=== PATIENT | female | born 1955 | race Caucasian/White ===

== ENCOUNTER → 2018-02-20 | Outpatient (CLI) | payer OTHER ==
[~2018-02-20] MED LIST: ASCO1CHW13 PO; ASPECOTC PO; ATOR10TA82 PO; CALC-393 PO; COEN1CAP7 PO; DIPH25CA65 PO; DOXY25TA8 PO; FRCT/ PO; OMEG10007 PO; TURM1CAP2 PO
--- NOTE | 2018-02-20 09:16 | DIAGNOSTIC IMAGING REPORT ---
LEFT KNEE 4 VIEWS HISTORY: Left knee pain. COMPARISON: None. FINDINGS: There is no fracture or dislocation. Soft tissues are unremarkable. Cartilage spaces are maintained for age. Tiny marginal osteophytes at the patella. IMPRESSION: No significant abnormality within the left knee. Electronically signed by: Marco Adams M.D. 02/20/2018 9:15 AM Dictated Date/Time: 02/20/2018 9:02 AM
== END | disposition home or self-care (01) ==
LOC: C.RAD1850 08:48
PROVIDERS: ATTEND Nurse Practitioner
DX: M25.562 Pain in left knee (principal)